=== PATIENT | female | born 1945 | race Caucasian/White ===

== ENCOUNTER 2017-05-30 07:00 | Inpatient (IN) ==
[2017-05-24 15:41] LABS: Appearance,Urine CLEAR; Bilirubin,Urine NEG (NEG); Color,Urine YELLOW; Glucose,Urine (UA) NEGATIVE (NEG); Leukocyte Esterase,Urine NEG /uL (NEG); Nitrate,Urine NEG (NEG); Protein,Urine NEG (NEG); Specific Gravity,Urine 1.011 (1.000-1.035); Urine Blood NEG mg/dL (<0.03); Urobilinogen,Urine NEG (NEG)
[2017-05-24 17:09] LABS: Basophils # (Auto) 0.1 K/mcL (0.0-0.3); Basophils % (Auto) 0.5 % (0.0-2.0); Eosinophils # (Auto) 0.3 K/mcL (0.0-0.7); Eosinophils % (Auto) 3.2 % (0.0-7.0); Granulocytes % (Auto) 61.2 % (38.0-78.0); Lymphocytes % (Auto) 28.4 % (15.5-49.0); Mean Cell Volume 90.6 fL (80.0-100.0); Mean Corpuscular HGB Conc 33.8 g/dL (31.0-36.0); Mean Corpuscular Hemoglobin 30.6 pg (26.0-34.0); Monocytes # (Auto) 0.7 K/mcL (0.1-0.9); Monocytes % (Auto) 6.7 % (1.0-12.0); Platelet Count 419 K/mcL (140-440); RBC 4.66 M/mcL (4.00-5.20)
[2017-05-24 17:16] LABS: Blood Urea Nitrogen 15 mg/dl (8-23)
[~2017-05-30 07:00] MED LIST: ACETAMINOPHEN 500 MG TABLET PO SCH; CELECOXIB 200 MG CAPSULE PO SCH; PREGABALIN 75 MG CAPSULE PO SCH; ceFAZolin 1 GM VIAL IV SCH; oxyCODONE 10 MG TAB.ER.12H PO SCH
[2017-05-30] MEDS ORDERED: KETOROLAC 30 MG, ROPIVACAINE HCL/PF 49.5 ML, EPINEPHrine 0.5 MG, 0.9 % SODIUM CHLORIDE ... IJ SCH (08:00)
[2017-05-30] MEDS ORDERED: GENTAMICIN SULFATE 800 MG/20 ML VIAL IR ONE (08:08)
[2017-05-30] MEDS ORDERED: PROPOFOL 200 MG/20 ML VIAL IV ONE (09:00)
[2017-05-30] MEDS ORDERED: MIDAZOLAM 5 MG/5 ML VIAL IV ONE (09:00)
[2017-05-30] MEDS ORDERED: LIDOCAINE HCL/PF 100 MG/5 ML SYRINGE IV ONE (09:00)
[2017-05-30] MEDS ORDERED: TRANEXAMIC ACID 1,000 MG/10 ML VIAL IV ONE ×2 (09:00→10:32)
[2017-05-30] MEDS ORDERED: ONDANSETRON 4 MG/2 ML VIAL IV ONE (09:00)
[2017-05-30] MEDS ORDERED: GLYCOPYRROLATE 0.2 MG/ML VIAL IV ONE (09:00)
[2017-05-30] MEDS ORDERED: KETAMINE 100 MG/ML ML IV ONE (09:00)
[2017-05-30] MEDS ORDERED: PHENYLEPHRINE 10 MG/ML VIAL IV ONE (09:00)
[2017-05-30] MEDS ORDERED: MEPERIDINE 25 MG/ML SYRINGE IV PRN (09:44)
[2017-05-30] MEDS ORDERED: fentaNYL 100 MCG/2 ML VIAL IV PRN (09:44)
[2017-05-30] MEDS ORDERED: IPRATROPIUM/ALBUTEROL 3 ML AMPUL.NEB NEB PRN (09:44)
[2017-05-30] MEDS ORDERED: ePHEDrine 50 MG/ML AMPUL IV PRN (09:44)
[2017-05-30] MEDS ORDERED: PROMETHAZINE 25 MG/ML VIAL IV PRN (09:44)
[2017-05-30] MEDS ORDERED: METHOCARBAMOL 1,000 MG/10 ML VIAL IV PRN (09:44)
[2017-05-30] MEDS ORDERED: ONDANSETRON 4 MG/2 ML VIAL IV PRN (09:44)
[2017-05-30] MEDS ORDERED: LACTATED RINGERS 1,000 ML IV SCH (09:45)
[2017-05-30] MEDS ORDERED: ACETAMINOPHEN 325 MG TABLET PO PRN (10:32)
[2017-05-30] MEDS ORDERED: BENZOCAINE/MENTHOL 1 LOZENGE PO PRN (10:32)
[2017-05-30] MEDS ORDERED: HYDROmorphone 2 MG/ML SYRINGE IV PRN (10:32)
[2017-05-30] MEDS ORDERED: POLYETHYLENE GLYCOL 3350 17 GM PACKET PO PRN (10:32)
[2017-05-30] MEDS ORDERED: BISACODYL 10 MG SUPP.RECT PR PRN (10:32)
[2017-05-30] MEDS ORDERED: FLEETS ADULT ENEMA PR PRN (10:32)
[2017-05-30] MEDS ORDERED: MAGNESIUM HYDROXIDE 30 ML ORAL.SUSP PO PRN (10:32)
[2017-05-30] MEDS ORDERED: traMADol 50 MG TABLET PO PRN (10:35)
--- NOTE | 2017-05-30 10:37 | Brief Operative Note ---
Date of procedure: 05/30/17 Pre-op diagnosis: right hip djd Post-op diagnosis: same Procedure: right ke Grafts/Implants: Yes Anesthesia: GETA Complications Description: 05/30/17 10:36 none Surgeon: Contreras Pressley Plans Examiner: Jamie Martin Estimated blood loss (cc): 20 Specimens Removed/Pathology: none sent Condition: stable Disposition: PACU
--- NOTE | 2017-05-30 11:26 | XRay Report ---
HISTORY: Reason for Exam:Post-op Total Hip FINDINGS: There is a well-positioned right total hip prosthesis. No fracture or dislocation are present. There are no abnormal soft tissue calcifications. IMPRESSION: Well-positioned right hip prosthesis Interpreted and Authenticated by: Jose Faust 05/30/17
--- NOTE | 2017-05-30 11:40 | Operative Note ---
DATE OF OPERATION: 05/30/2017 PREOPERATIVE DIAGNOSIS: Right hip degenerative arthritis. POSTOPERATIVE DIAGNOSIS: Right hip degenerative arthritis. PROCEDURE: Right total hip arthroplasty using cementless components. SURGEON: Contreras Pressley MD [facility] REPORT DEVELOPER: Nilo Martin PA-C. ANESTHESIA: General LMA anesthesia. ESTIMATED BLOOD LOSS: 20 mL COMPLICATIONS: None. DESCRIPTION OF PROCEDURE: The patient was brought to the operating room and put to sleep with general LMA anesthesia. Once we confirmed the operative site was the right hip both my initials and a time out, we then proceeded with a total hip arthroplasty, superior posterior approach was performed. We identified the fascial layer, retractors were placed and the hip was dislocated. Once this was done, we made our neck cut at 32 mm below the center hip rotation and then broached up to the size of 3. We reamed the acetabulum up to the size of 49 and implanted a 50 cup with a 30 mm screw. Once this was done, we then placed a poly liner. Once this was done, we then took an x-ray to confirm the reduction to the hip and leg length. There was slight leg lengthening of the right leg. For this we countersunk the stem and went to a negative 2.5 stem. This seemed to fit very nicely, very stable. We irrigated thoroughly, repaired the posterior capsule and repaired the fascial layer with #1 Stratafix, close the skin with 2-0 Vicryls and leatha. The patient tolerated this well without complication. RBH:charity Job ID: [id number] Doc ID: [id number] Contreras Pressley MD
[2017-05-30] MEDS: 0.45 % SODIUM CHLORIDE 1,000 ML IV SCH ×2 (11:45→19:07)
[2017-05-30] MEDS: KETOROLAC 15 MG/ML VIAL IV PRN (12:04)
[2017-05-30] MEDS: HYDROcodone/APAP 10/325MG TABLET PO PRN ×3 (13:09→20:56)
[2017-05-30] MEDS: GABAPENTIN 300 MG CAPSULE PO SCH (13:09)
[2017-05-30] MEDS: ONDANSETRON 4 MG/2 ML VIAL IV PRN ×2 (13:09→17:02)
[2017-05-30] MEDS: 0.9 % SODIUM CHLORIDE 10 ML SYRINGE IV SCH ×2 (13:12→20:57)
[2017-05-30] MEDS: ceFAZolin 1 GM VIAL IV SCH (16:53)
[2017-05-30] MEDS: SENNOSIDES 1 TABLET PO SCH (20:56)
[2017-05-30] MEDS: ASPIRIN 325 MG ENTERIC COATED TABLET PO SCH (20:56)
[2017-05-30] MEDS: DOCUSATE SODIUM 100 MG CAPSULE PO SCH (20:56)
[2017-05-30] MEDS: TEMAZEPAM 15 MG CAPSULE PO PRN (21:56)
[2017-05-31] MEDS: ceFAZolin 1 GM VIAL IV SCH (01:31)
[2017-05-31] MEDS: HYDROcodone/APAP 10/325MG TABLET PO PRN ×5 (01:31→21:25)
[2017-05-31] MEDS: ONDANSETRON 4 MG/2 ML VIAL IV PRN ×2 (01:58→09:03)
[2017-05-31] MEDS: 0.45 % SODIUM CHLORIDE 1,000 ML IV SCH (05:33)
[2017-05-31] MEDS: 0.9 % SODIUM CHLORIDE 10 ML SYRINGE IV SCH ×3 (05:39→21:26)
[2017-05-31] MEDS: KETOROLAC 15 MG/ML VIAL IV PRN (05:58)
--- NOTE | 2017-05-31 07:12 | Discharge Summary ---
Ortho Discharge - [facility] - Patient Instructions Diet: Regular Diet Activity: activity as tolerated, weight bearing as tolerated Total Hip Protocol: Follow activity instructions as provided by Physical Therapy. Dressing Care: Jennyfer Ag - leave on for 5 days - Follow Up Plan Follow Up Appointments: Contreras Pressley MD [Physician] - 06/15/17 10:40 am Disposition: Home, Self-Care Prognosis: Good Rehab Potential: Good I certify that the patient requires SNF services: No Overall status at discharge: patient is progressing back to baseline - Orders For Discharge Additional Discharge Orders: Physical Therapy at Discharge - [facility] Location: Determined By Patient Toilet Riser Discharge Order Location: Determined By Patient Walker Location: Determined By Patient
[2017-05-31] MEDS: GABAPENTIN 300 MG CAPSULE PO SCH ×2 (09:03→11:27)
[2017-05-31] MEDS: DOCUSATE SODIUM 100 MG CAPSULE PO SCH ×2 (09:03→21:25)
[2017-05-31] MEDS: ASPIRIN 325 MG ENTERIC COATED TABLET PO SCH ×2 (09:03→21:25)
[2017-05-31] MEDS ORDERED: METHOCARBAMOL 750 MG TABLET PO PRN (15:41)
--- NOTE | 2017-05-31 17:07 | Orthopedic Progress Note ---
Subjective Patient information: Note initiated : 05/31/17 at 5:05 pm Service Date, if different from initiated Date: [] Patient: Hoa Yuen 72 y/o F admitted on 05/30/17 for Right Total Hip Arthroplasty. Chief Complaint: [c/o left thigh pain] Objective Vital signs: Vital Signs Temp Pulse Resp BP Pulse Ox 05/31/17 14:00 94 05/31/17 12:00 97.3 F 18 125/76 94 05/31/17 08:00 93 05/31/17 06:58 98.2 F 18 85/57 92 05/31/17 05:45 95 05/31/17 04:00 98.2 F 88 16 90/57 96 05/31/17 02:00 95 05/31/17 00:00 97.1 F 85 16 90/58 94 05/30/17 20:00 97.8 F 95 H 16 165/80 94 Intake and Output 05/31/17 05/31/17 05/31/17 05:59 13:59 21:59 Intake Total 1150 / 1150 220 / 220 Output Total 1350 / 1350 200 / 200 300 / 300 Balance -200 / -200 20 / 20 -300 / -300 Intake: Oral 1150 / 1150 220 / 220 Output: Void Amount 1350 / 1350 200 / 200 300 / 300 Other: Meal yogurt Lunch Percent of Meal Consumed 100% 25% Feeding Ability Independent Independent Intake & Output: Intake & Output 05/31/17 05/31/17 05/31/17 05:59 13:59 21:59 Intake Total 1150 / 1150 220 / 220 Output Total 1350 / 1350 200 / 200 300 / 300 Balance -200 / -200 20 / 20 -300 / -300 Intake: Oral 1150 / 1150 220 / 220 Output: Void Amount 1350 / 1350 200 / 200 300 / 300 Other: Meal yogurt Lunch Percent of Meal Consumed 100% 25% Feeding Ability Independent Independent Incision: Yes healing Incision clean and dry: Yes Dressing: Yes clean Weight bearing status: full Neurological exam IM: Yes oriented X3, Yes neurovascular intact Extremities exam IM: Yes Foot pink and warm, Yes neurovascular intact - Labs CBC & BMP: 05/31/17 04:20 05/24/17 14:03 Labs: Orthopedic Labs 05/24/17 14:03 PT 12.4 INR 0.9 APTT 30 05/31/17 05/24/17 04:20 14:03 Hgb 14.3 Hct 33.6 L 42.2
[2017-05-31] MEDS: SENNOSIDES 1 TABLET PO SCH (21:25)
[2017-05-31] MEDS: FAMOTIDINE 20 MG TABLET PO SCH (21:25)
[2017-06-01] MEDS: HYDROcodone/APAP 10/325MG TABLET PO PRN ×2 (01:13→22:57)
[2017-06-01] MEDS: 0.9 % SODIUM CHLORIDE 10 ML SYRINGE IV SCH ×3 (05:23→20:10)
[2017-06-01] MEDS: ONDANSETRON 4 MG/2 ML VIAL IV PRN ×3 (05:56→22:57)
--- NOTE | 2017-06-01 06:31 | Orthopedic Progress Note ---
Subjective Patient information: Note initiated : 06/01/17 at 6:29 am Service Date, if different from initiated Date: [] Patient: Hoa Yuen 72 y/o F admitted on 05/30/17 for Right Total Hip Arthroplasty. Chief Complaint: [leg pain and slow to walk ] Objective Vital signs: Vital Signs Temp Pulse Resp BP BP Pulse Ox 06/01/17 05:24 95 06/01/17 04:00 98.9 F 93 H 12 101/69 114/64 95 06/01/17 01:51 96 06/01/17 00:00 97.4 F 89 12 113/75 136/79 97 05/31/17 21:50 93 05/31/17 20:00 93 05/31/17 19:30 86 103/64 91 05/31/17 19:09 98.6 F 98 H 12 82/58 92 05/31/17 18:00 93 05/31/17 16:00 97.5 F 18 121/75 94 05/31/17 14:00 94 05/31/17 12:00 97.3 F 18 125/76 94 05/31/17 08:00 93 05/31/17 06:58 98.2 F 18 85/57 92 Intake and Output 05/31/17 06/01/17 06/01/17 21:59 05:59 13:59 Intake Total 240 / 240 250 / 250 Output Total 425 / 425 750 / 750 Balance -185 / -185 -500 / -500 Intake: Oral 240 / 240 250 / 250 Output: Void Amount 425 / 425 750 / 750 Other: Meal Dinner Fruit cup Percent of Meal Consumed 25% 100% Feeding Ability Independent Independent Weight 190 lb Intake & Output: Intake & Output 05/31/17 06/01/17 06/01/17 21:59 05:59 13:59 Intake Total 240 / 240 250 / 250 Output Total 425 / 425 750 / 750 Balance -185 / -185 -500 / -500 Weight 190 lb Intake: Oral 240 / 240 250 / 250 Output: Void Amount 425 / 425 750 / 750 Other: Meal Dinner Fruit cup Percent of Meal Consumed 25% 100% Feeding Ability Independent Independent Incision: Yes healing Incision clean and dry: Yes Dressing: Yes clean Weight bearing status: full Neurological exam IM: Yes oriented X3, Yes neurovascular intact Extremities exam IM: Yes Foot pink and warm (dc to snf in am), Yes neurovascular intact - Labs CBC & BMP: 05/31/17 04:20 05/24/17 14:03 Labs: Orthopedic Labs 05/24/17 14:03 PT 12.4 INR 0.9 APTT 30 05/31/17 05/24/17 04:20 14:03 Hgb 14.3 Hct 33.6 L 42.2
--- NOTE | 2017-06-01 06:33 | Discharge Summary ---
Ortho Discharge - [facility] - Patient Instructions Diet: Regular Diet Activity: activity as tolerated, weight bearing as tolerated Total Hip Protocol: Follow activity instructions as provided by Physical Therapy. Dressing Care: Aquacel Ag - leave on for 5 days Patient Education: Oxycodone/Acetaminophen (By mouth), Aspirin (By mouth), Total Hip Replacement (DC) Additional Instructions: Discharge Instructions: Do the exercises at home that physical therapy gave you throughout the day. Take your prescription, photo ID, insurance cards, and current medication list with you to your first physical therapy appointment. Take your prescription to sisal picker any medication or equipment (such as walker, crutches, toilet riser or C.P.M.) Wear comfortable clothing for your physical therapy. Weight bearing as tolerated. You have the Aquacel Ag dressing, leave in place for 7 days then remove. If dressing becomes soiled (turns black), remove and use gauze 4x4 dressing and silvasorb ointment and change daily. Keep incision clean and dry. You may start showering on post op day #2. To avoid constipation while taking any narcotic pain medication, take an over the counter stool softener/laxative. Use ice packs as directed, on for 20 minutes at a time throughout the day. This and elevation will help with pain and swelling. Call your physician for fevers above 100.5 or pain not controlled by medication. Your prescriptions are with your discharge information. Some medications were electronically transmitted to your pharmacy of choice. - Follow Up Plan Follow Up Appointments: Contreras Pressley MD [Physician] - 06/15/17 10:40 am Disposition: Xfer SNF Prognosis: Good Rehab Potential: Good I certify that the patient requires SNF services: Yes Overall status at discharge: patient is progressing back to baseline - Orders For Discharge Prescriptions: Aspirin [Ecotrin] 325 mg PO BID #28 tab.ec oxyCODONE/APAP [Percocet 5-325 mg] 1 - 2 tab PO Q4H PRN #60 tab PRN Reason: Pain Additional Discharge Orders: Physical Therapy at Discharge - [facility] Location: Determined By Patient Toilet Riser Discharge Order Location: Determined By Patient Walker Location: Determined By Patient
[2017-06-01] MEDS: FAMOTIDINE 20 MG TABLET PO SCH ×2 (10:04→20:09)
[2017-06-01] MEDS: DOCUSATE SODIUM 100 MG CAPSULE PO SCH ×2 (10:04→20:10)
[2017-06-01] MEDS: ASPIRIN 325 MG ENTERIC COATED TABLET PO SCH ×2 (10:04→20:09)
[2017-06-01] MEDS: MAGNESIUM OXIDE 400 MG TABLET PO SCH (10:05)
[2017-06-01] MEDS: GABAPENTIN 300 MG CAPSULE PO SCH ×2 (10:05→16:48)
[2017-06-01] MEDS: TEMAZEPAM 15 MG CAPSULE PO PRN (20:10)
[2017-06-01] MEDS: SENNOSIDES 1 TABLET PO SCH (20:10)
[2017-06-02] MEDS: HYDROcodone/APAP 10/325MG TABLET PO PRN ×2 (02:31→08:26)
[2017-06-02] MEDS: ONDANSETRON 4 MG/2 ML VIAL IV PRN ×2 (02:31→08:23)
[2017-06-02] MEDS: 0.9 % SODIUM CHLORIDE 10 ML SYRINGE IV SCH (06:08)
[2017-06-02] MEDS: GABAPENTIN 300 MG CAPSULE PO SCH (08:26)
[2017-06-02] MEDS: ASPIRIN 325 MG ENTERIC COATED TABLET PO SCH (08:26)
[2017-06-02] MEDS: DOCUSATE SODIUM 100 MG CAPSULE PO SCH ×2 (08:26→08:32)
[2017-06-02] MEDS: MAGNESIUM OXIDE 400 MG TABLET PO SCH (08:26)
[2017-06-02] MEDS: FAMOTIDINE 20 MG TABLET PO SCH (08:26)
== END 2017-06-02 10:45 | DRG 470 ==
LOC: MEDSUR 07:00
PROVIDERS: ADMIT Orthopaedic Surgery; ATTEND Orthopaedic Surgery